=== PATIENT | female | born 1955 | race Caucasian/White ===

== ENCOUNTER 2016-12-16 10:23 | Observation (INO) | payer OTHER ==
[2016-12-16 10:23] VITALS: BMI 28.3
[2016-12-16 10:56] VITALS: TEMP 98.7
[2016-12-16 11:01] LABS: ADD MANUAL DIFF? NO
[2016-12-16 11:05] LABS: BASO # 0.03 K/mm3 (0.0-2.0); BASO % 0.5 % (0.0-3.0); EOS # 0.2 (0.0-0.7); EOS % 3.8 % (1.5-5.0); GRAN # 3.03 (1.4-6.5); GRAN % 49.8 % (50.0-68.0); HEMATOCRIT 37.9 % (36.0-48.0); LYMPH # 2.1 (1.2-3.4); MEAN CELL VOLUME 92.7 fL (80.0-105.0); MEAN CORPUSCULAR HEMOGLOBIN 32.3 pg (25.0-35.0); MEAN CORPUSCULAR HGB CONC 34.8 g/dl (31.0-37.0); MEAN PLATELET VOLUME 9.1 fl (7.0-11.0); MONO # 0.7 (0.1-0.6); MONO % 10.9 % (1.0-6.0); PLATELET COUNT 210 10^3/uL (120.0-450.0); RED CELL DISTRIBUTION WIDTH 13.2 % (11.5-14.5); URINE APPEARANCE CLEAR (CLEAR); URINE BILIRUBIN NEGATIVE (NEGATIVE); URINE BLOOD NEGATIVE (NEGATIVE); URINE COLOR YELLOW (YELLOW); URINE GLUCOSE (UA) NEGATIVE (NEGATIVE); URINE KETONE NEGATIVE (NEGATIVE); URINE LEUKOCYTE ESTERASE NEGATIVE Leu/uL (NEGATIVE); URINE PROTEIN TRACE mg/dL (<30 mg/dL); URINE UROBILINOGEN 0.2 E.U./dL (<1 E.U./dL); WHITE BLOOD COUNT 6.1 10^3/ul (4.5-11.0)
[2016-12-16 11:09] LABS: URINE BACTERIA FEW (NEG); URINE RBC 0 - 2 /hpf (0-2); URINE WBC 0 - 2 /hpf (0-6)
--- NOTE | 2016-12-16 11:09 | ED PDOC ---
Arrival/HPI - General Chief Complaint: Back Pain Time Seen by Provider: 12/16/16 10:32 Historian: Patient - History of Present Illness Narrative History of Present Illness (Text): 12/16/16 13:59 Patient is a 60 year old female, presents to Emergency Department complaining of lower right sided back pain for the past 10 days. Patient reports that she does not recall any trauma. She denies abdominal pain to me. States that she "woke up feeling the pain" 10 days ago. Reports that pain is worse with certain movements. Pain does not radiate to hip or leg or abdomen. No associated numbness or weakness. Pain improved with walking, worse with certain turns or sitting positions. No associated rash. No abdominal pain. No urinary symptoms. No chest pain or shortness of breath. Denies headaches. Denies incontinence of urine or stool. Denies any known injuries. States that she had "cold" for "two weeks" earlier this month, but denies having back pain at that time but does report that she was coughing a great deal at that time, not currently. Denies shortness of breath or pleuritic pain. Time/Duration: > week Past Medical History - Hematological/Oncological Hx Cancer: Yes (Rt. Breast) - Integumentary Other/Comment: lymphadema - Psychiatric Hx Substance Use: No - Surgical History Hx Mastectomy: Yes (Rt. sided) Hx Orthopedic Surgery: Yes (RKR) - Anesthesia Hx Anesthesia: Yes Family/Social History Family/Social History: Unknown Family HX Smoking Status: Never Smoked Hx Alcohol Use: Yes Hx Substance Use: No Allergies/Home Meds Allergies/Adverse Reactions: Allergies No Known Allergies Allergy (Verified 12/16/16 10:39) Review of Systems - Review of Systems Constitutional: absent: Fatigue, Fevers Eyes: absent: Vision Changes Respiratory: absent: SOB Cardiovascular: absent: Chest Pain, NUNEZ Gastrointestinal: absent: Abdominal Pain Genitourinary Female: absent: Dysuria, Frequency, Hematuria, Urine Output Changes Musculoskeletal: Back Pain. absent: Arthralgias, Neck Pain, Joint Swelling Skin: absent: Rash Neurological: absent: Headache, Dizziness, Focal Weakness Endocrine: absent: Polyuria, Polydipsia Hemo/Lymphatic: absent: Easy Bleeding Physical Exam - Physical Exam Narrative Physical Exam (Text): Head: Atraumatic. Normocephalic. Eyes: PERRL. EOMI. Conjunctivae are not pale. ENT: Mucous membranes are moist and intact. Oropharynx is clear and symmetric. Neck: Supple. Full ROM. No JVD. No lymphadenopathy. Cardiovascular: Regular rate. Regular rhythm. No pathologic murmurs noted. Pulmonary/Chest: No evidence of respiratory distress. Clear to auscultation bilaterally. No wheezing, rales or rhonchi. Abdominal: Soft and non-distended. There is no tenderness. No pusatile masses. Back: No CVA tenderness. Focal right lower lumbar paraspinal tenderness. No rash or erythema or edema. No stepoff. No soft tissue swelling. No pain with straight leg testing. Extremities: No edema. No cyanosis. No clubbing. Full range of motion in all extremities. No calf tenderness. No pain with range of motion of hip, knee or ankles bilaterally. Distal pulses intact, skin warm distally. Skin: Skin is warm and dry. No petechiae. No purpura. No vesicular rash. Neurological: Alert, awake, and oriented. Ambulatory. No saddle anesthesia. No facial droop. Normal speech. Motor and sensory intact. No saddle anesthesia. Psychiatric: Good eye contact. Normal interaction, affect, and behavior. Vital Signs Reviewed: Yes Vital Signs Temp Pulse Resp BP Pulse Ox 12/16/16 15:00 79 18 155/89 H 98 12/16/16 13:33 86 18 157/97 H 98 12/16/16 10:40 98.7 F 85 17 170/110 H 99 Temperature: Afebrile Blood Pressure: Hypertensive Pulse: Regular Respiratory Rate: Normal Appearance: Positive for: Uncomfortable Pain Distress: Moderate Medical Decision Making ED Course and Treatment: 12/16/16 14:06 Patient's examination reveals focal palpable pain to right lower lumbar region, no associated trauma, but pain reproducible with palpation and certain movements. Relief at times with walking. No motor or sensory deficits noted. As pain palpable, worse with movement, as well as unremarkable urinalysis, symptoms do not appear to be renal in nature. She states pain is not colicky, but with movements. No prior injury or history of back pain reported. No buttock pain. No radiation to groin or down leg. No pulse deficits noted. No abdominal pain or pulsatile masses. Patient is hypertensive, but no headache or neuro deficits or chest pain noted. She states recently she has had high blood pressure readings at physician's office, but currently does not take blood pressure medication. PROCEDURE: Radiographs of the Lumbar Spine. Stretcher Leveler Operator Helper : Yoli Chapman V. IMPRESSION: No fracture or subluxation. Minimal spondylosis She has prior history of breast cancer. Limitations of plain films in diagnosis masses or lesions reviewed, although no obvious deformities noted on lumbar films. Patient has had no relief of pain after taking Advil over the past several days , and pain progressively worse. As no relief with Advil and worsening of pain, MRI ordered. Patient agreeable to Toradol injection after this medication was reviewed with her. On re-exam reports some improvement in pain after Toradol. Patient updated with treatment plan, MRI pending. Case reviewed with Dr. Lambert, covering for her PMD Dr. Adams. PROCEDURE: MR LUMBAR SPINE WITHOUT CONTRAST Stretcher Leveler Operator Helper : Delio Solis MD Report Date : 12/16/2016 14:47:45 FINDINGS: Normal lumbar lordosis. Vertebral body heights are preserved. Marrow signal unremarkable. Conus medullaris unremarkable at the level of T12 Paraspinal soft tissues are unremarkable. T12-L1: No disc herniation, spinal canal stenosis or neural foraminal narrowing. L1-2: There is a small right paracentral disc protrusion seen on axial image 12 series 7 and sagittal image 8. L2-3: No disc herniation, spinal canal stenosis or neural foraminal narrowing. L3-4: No disc herniation, spinal canal stenosis or neural foraminal narrowing. L4-5: No disc herniation, spinal canal stenosis or neural foraminal narrowing. L5-S1: Small central disc protrusion. No evidence of nerve root compression IMPRESSION: Small right paracentral disc protrusion at L1-2. Small central disc protrusion at L5-S1. No evidence of spinal stenosis MRI report reviewed with patient. As pain is palpable, worse with movement, I feel current presentation is consistent with lumbar disc etiology of pain as no abdominal pain, no urinary symptoms, no neuro deficits. No incontinence of urine or stool. Have advised follow-up with back specialist and Dr. Adams for referral. Will discharge with Flexeril and Naproxen, side effects reviewed, and need for follow-up discussed with patient. - Lab Interpretations Lab Results: 12/16/16 10:49 12/16/16 10:49 Lab Results 12/16/16 10:49: WBC 6.1, RBC 4.09, Hgb 13.2, Hct 37.9, MCV 92.7, MCH 32.3, MCHC 34.8, RDW 13.2, Plt Count 210, MPV 9.1, Gran % 49.8 L, Lymph % (Auto) 35.0, Kaufman % (Auto) 10.9 H, Eos % (Auto) 3.8, Baso % (Auto) 0.5, Gran # 3.03, Lymph # 2.1, Kaufman # 0.7 H, Eos # 0.2, Baso # 0.03, Sodium 141, Potassium 4.2, Chloride 101, Carbon Dioxide 28, Anion Gap 16, BUN 19, Creatinine 1.0, Est GFR ( Amer) > 60, Est GFR (Non-Af Amer) 56, Random Glucose 97, Calcium 9.7, Total Bilirubin 0.6, AST 32, ALT 36, Alkaline Phosphatase 69, Total Protein 8.5 H, Albumin 4.5, Globulin 4.0, Albumin/Globulin Ratio 1.1, Urine Color Yellow, Urine Appearance Clear, Urine pH 7.0, Ur Specific [place] 1.010, Urine Protein Trace H, Urine Glucose (UA) Negative, Urine Ketones Negative, Urine Blood Negative, Urine Nitrate Negative, Urine Bilirubin Negative, Urine Urobilinogen 0.2, Ur Leukocyte Esterase Negative, Urine RBC 0 - 2, Urine WBC 0 - 2, Urine Bacteria Few - RAD Interpretation Radiology Orders: 12/16/16 10:50 LS SPINE WITH OBL > 18 YRS OLD [RAD] Stat 12/16/16 12:17 SPINAL CANAL LUMBAR W/O CONT [MRI] Stat - Medication Orders Current Medication Orders: Discontinued Medications Ketorolac Tromethamine (Toradol) 30 mg IVP ONCE ONE Stop: 12/16/16 12:18 Last Admin: 12/16/16 12:42 Dose: 30 MG IVP Administration Document 12/16/16 12:42 SE (Rec: 12/16/16 12:42 SE [facility] [place] [facility] [id number] Charges for Administration # of IVP Administrations 1 ED OBSERVATION Discharge: Yes Date of observation admission: 12/16/16 Time of observation admission: 10:45 - Observation admission statement Patient is being placed in observation because:: Patient with lower back pain, requiring serial exams, imaging studies, reassessment of pain after medication. - Goals of Observation Goals of observation are:: Patient with improved but persistent pain after Toradol. MRI ordered due to persistent pain, remote history of prior breast cancer. - Progress Note Progress Note: 12/16/16 15:24 MRI report reviewed with patient. On re-exam, neurologically intact, ambulatory, pain controlled. Treatment plan of NSAID, flexeril, reviewed with patient. Stressed need for follow-up with PMD for repeat BP, re-evaluation of back pain. Risks/side effects reviewed of medication. Disposition/Present on Arrival - Present on Arrival Any Indicators Present on Arrival: No History of DVT/PE: No History of Uncontrolled Diabetes: No Urinary Catheter: No History of Decub. Ulcer: No History Surgical Site Infection Following: None - Disposition Have Diagnosis and Disposition been Completed?: Yes Diagnosis: Back pain, Hypertension Disposition: HOME/ ROUTINE Disposition Time: 15:00 Patient Plan: Observation Condition: GOOD
[2016-12-16 11:19] LABS: ALB/GLOB RATIO 1.1 (1.1-1.8); ALKALINE PHOSPHATASE 69 U/L (38-133); ALT/SGPT 36 U/L (7-56); AST/SGOT 32 U/L (15-39); BILIRUBIN,TOTAL 0.6 mg/dL (0.2-1.3); BLOOD UREA NITROGEN 19 mg/dL (7-21); CALCIUM 9.7 mg/dL (8.4-10.5); CARBON DIOXIDE 28 mmol/L (21-33); CHLORIDE 101 mmol/L (98-107); GFR AFRICAN-AMERICAN > 60; GLUCOSE,RANDOM 97 mg/dL (70-110); POTASSIUM 4.2 mmol/L (3.6-5.0); SODIUM 141 mmol/L (132-148); TOTAL PROTEIN 8.5 g/dL (5.8-8.3)
--- NOTE | 2016-12-16 12:40 | RAD ---
PROCEDURE: Radiographs of the Lumbar Spine. HISTORY: atraumatic back pain COMPARISON: No prior. FINDINGS: BONES: Normal alignment. No listhesis. No fracture. Minimal endplate spurring L5 L3 and L2 levels DISC SPACES: Unremarkable. OTHER FINDINGS: Partially visualized is a lower inferior thoracic [place] segment IMPRESSION: No fracture or subluxation. Minimal spondylosis
[2016-12-16 13:33] VITALS: RESP 18; O2SAT 98
--- NOTE | 2016-12-16 14:49 | MRI ---
PROCEDURE: MR LUMBAR SPINE WITHOUT CONTRAST HISTORY: right sided severe low back pain COMPARISON: None available. TECHNIQUE: Multiecho multiplanar sequences were performed through the lumbar spine without the use of intravenous contrast. FINDINGS: Normal lumbar lordosis. Vertebral body heights are preserved. Marrow signal unremarkable. Conus medullaris unremarkable at the level of T12 Paraspinal soft tissues are unremarkable. T12-L1: No disc herniation, spinal canal stenosis or neural foraminal narrowing. L1-2: There is a small right paracentral disc protrusion seen on axial image 12 series 7 and sagittal image 8. L2-3: No disc herniation, spinal canal stenosis or neural foraminal narrowing. L3-4: No disc herniation, spinal canal stenosis or neural foraminal narrowing. L4-5: No disc herniation, spinal canal stenosis or neural foraminal narrowing. L5-S1: Small central disc protrusion. No evidence of nerve root compression OTHER FINDINGS: None. IMPRESSION: Small right paracentral disc protrusion at L1-2. Small central disc protrusion at L5-S1. No evidence of spinal stenosis
[2016-12-16 15:33] VITALS: BP 155/89; PULSE 79
--- NOTE | 2016-12-16 17:55 | CARD ---
APPROVED REPORT EKG Measurement Heart [id number] <Conclusion> Normal sinus rhythm Incomplete right bundle branch block Left anterior fascicular block Minimal voltage criteria for LVH, may be normal variant Abnormal ECG
== END 2016-12-16 15:25 | disposition home or self-care (01) ==
LOC: ED 10:23 → EROBSV 12:30
PROVIDERS: ADMIT Emergency Medicine; ATTEND Emergency Medicine
DX: M54.5 Low back pain (principal)
CPT/HCPCS: 72110; 72148; 80053; 81001; 85025; 93005; 96374; 99284; G0378; J1885

== ENCOUNTER 2017-07-16 05:54 | Emergency (ER) | payer OTHER ==
[2017-07-16 05:54] VITALS: BMI 28.3
[2017-07-16 06:07] VITALS: TEMP 98.5
--- NOTE | 2017-07-16 06:22 | ED PDOC ---
Arrival/HPI - General Chief Complaint: Abnormal Skin Integrity Time Seen by Provider: 07/16/17 06:15 - History of Present Illness Narrative History of Present Illness (Text): 07/16/17 06:19 61-year-old female who presents with concerns for cellulitis. She has a history of cellulitis due to severe dry skin and she started to feel "twinging in her right arm as well as warmth and redness in that area. She denies any diabetes as any prednisone she's not currently taking antibiotics she denies any history of MRSA or abscesses. Although she does work for [employer] she does not deal with patients directly. She denies any fever or chills. No joint pain Time/Duration: 1 hour Symptom Onset: Sudden Symptom Course: Unchanged Quality: Burning Severity Level: 3 Activities at Onset: Rest Past Medical History - Provider Review Nursing Documentation Reviewed: Yes - Travel History Have you recently traveled outside [place] w/in the past 3 mons?: No - Past History Past History: Non-Contributing - Infectious Disease Hx of Infectious Diseases: None - Tetanus Immunization Tetanus Immunization: Unknown - Cardiac Hx Cardiac Disorders: Yes Hx Hypotension: Yes - Pulmonary Hx Respiratory Disorders: No - Neurological Hx Neurological Disorder: No - HEENT Hx HEENT Disorder: No - Renal Hx Renal Disorder: No - Endocrine/Metabolic Hx Endocrine Disorders: No - Hematological/Oncological Hx Blood Disorders: Yes Hx Cancer: Yes (Rt. Breast) Other/Comment: RIGHT SIDED LYMPHEDEMA - Integumentary Hx Dermatological Disorder: No Other/Comment: lymphedema - Musculoskeletal/Rheumatological Hx Musculoskeletal Disorders: No Hx Falls: No - Gastrointestinal Hx Gastrointestinal Disorders: No - Genitourinary/Gynecological Hx Genitourinary Disorders: No - Psychiatric Hx Psychophysiologic Disorder: No Hx Substance Use: No - Surgical History Hx Mastectomy: Yes (Rt. sided) Hx Orthopedic Surgery: Yes (RKR) - Anesthesia Hx Anesthesia: Yes Hx Anesthesia Reactions: No Hx Malignant Hyperthermia: No Family/Social History - Physician Review Nursing Documentation Reviewed: Yes Family/Social History: No Known Family HX Smoking Status: Never Smoked Hx Alcohol Use: No Hx Substance Use: No Allergies/Home Meds Allergies/Adverse Reactions: Allergies No Known Allergies Allergy (Verified 04/08/17 11:22) Review of Systems - Review of Systems Constitutional: absent: Fevers, Night Sweats Musculoskeletal: Normal. absent: Joint Swelling Skin: Cellulitis. absent: Skin Lesions, Laceration, Abscess Endocrine: Normal Physical Exam Vital Signs Temp Pulse Resp BP Pulse Ox 07/16/17 05:54 98.5 F 81 16 155/98 H 99 Temperature: Afebrile Blood Pressure: Hypertensive Appearance: Positive for: Well-Appearing, Non-Toxic Pain Distress: None Mental Status: Positive for: Alert and Oriented X 3 - Systems Exam Head: Present: Atraumatic Pupils: Present: PERRL Extroacular Muscles: Present: EOMI Mouth: Present: Moist Mucous Membranes Neck: Present: Normal Range of Motion Cardiovascular: Present: Regular Rate and Rhythm Back: Present: Normal Inspection Upper Extremity: Present: Erythema, Neurovascularly Intact, Capillary Refill < 2s, Other (Diffuse superficial erythema on the lateral aspect of the arm approximately 6 x 10 cm). No: Cyanosis, Edema Neurological: Present: GCS=15 Skin: Present: Warm, Dry, Erythematous (Localized only to arm) Medical Decision Making ED Course and Treatment: 07/16/17 06:23 Consistent with early cellulitis is reasonable to treat for potential worsening condition at this point she is no MRSA risk factors we'll therefore treat for mild cellulitis Disposition/Present on Arrival - Present on Arrival Any Indicators Present on Arrival: No History of DVT/PE: No History of Uncontrolled Diabetes: No Urinary Catheter: No History of Decub. Ulcer: No History Surgical Site Infection Following: None - Disposition Have Diagnosis and Disposition been Completed?: Yes Diagnosis: Cellulitis, Hypertension Disposition: HOME/ ROUTINE Disposition Time: 06:26 Patient Plan: Discharge Patient Problems: Current Active Problems Problem Status Onset Cellulitis Acute Hypertension Acute Condition: IMPROVED Discharge Instructions (ExitCare): Cellulitis (ED), Hypertension (ED) Additional Instructions: followup with your primary doctor regarding your blood pressure, it was elevated today. Prescriptions: Cefpodoxime [Vantin] 200 mg PO BID #20 tab Sulfamethoxazole/Trimethoprim [Bactrim DS 800 mg-160 mg] 1 tab PO Q12 #20 tab
[2017-07-16] MEDS ORDERED: Tmp-Smz 800 mg-160 mg DS Tab PO STA (06:29)
[2017-07-16 06:53] VITALS: BP 135/91; PULSE 73; RESP 18; O2SAT 98
[2017-07-16] MEDS ORDERED: Cefpodoxime (Vantin) 100 mg Tab PO SCH (10:00)
== END 2017-07-16 07:05 | disposition home or self-care (01) ==
LOC: ED 05:54
DX: L03.113 Cellulitis of right upper limb (principal); I10 Essential (primary) hypertension

== ENCOUNTER 2018-10-10 18:34 | Outpatient (CLI) | payer OTHER | END 2018-10-10 18:35 | disposition home or self-care (01) | LOC: OPLAB 18:34 ==

== ENCOUNTER 2018-11-24 10:51 | Outpatient (CLI) | payer OTHER | END 2018-11-24 10:52 | disposition home or self-care (01) | LOC: RAD 10:51 ==